=== PATIENT | female | born 1980 | race Caucasian/White ===

== ENCOUNTER 2016-07-15 23:03 | Emergency (ER) | payer BC ==
[~2016-07-15] VITALS: Ht 152.4 cm; Wt 60.0 kg
[2016-07-15 23:15] VITALS: Ht 152.4 cm; Wt 60.0 kg
[2016-07-16] MEDS ORDERED: ONDANSETRON (ODT) 4 MG TAB ODT STA (00:12)
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
--- NOTE | 2016-07-16 01:20 | RADRPT ---
PROCEDURE: XR Chest. CLINICAL INDICATION: Chest pain and trauma TECHNIQUE: AP Portable chest. COMPARISON: No pertinent prior examinations were submitted for comparison. FINDINGS: The cardiomediastinal silhouette is normal. The lungs are clear. The osseous structures are unrema rkable. IMPRESSION: No acute findings. RPTAT: HIKT .Vinh Jeffrey MD, MD Date Time Electronically viewed and signed by .Vinh Jeffrey MD, MD on 07/16/2016 01:20 .T/
--- NOTE | 2016-07-16 01:22 | RADRPT ---
PROCEDURE: Noncontrast CT Head. CLINICAL INDICATION: Trauma TECHNIQUE: Noncontrast CT of the head was obtained. The administered radiation dose was CTDI vol = 45 mGy, DLP = 720 mGy-cm. COMPARISON: No pertinent prior examinations were submitted for comparison. FINDINGS: The ventricles and sulci are within normal limits. There is no acute intracranial hemorrhage or ext ra-axial fluid collection. There is no mass effect. No midline shift is identified. There is no loss of moulton-white differentiation to suggest acute infarction. The orbits are within normal limits. The paranasal sinuses and mastoid air cells are without fluid. No destructive osseous lesion is identified. IMPRESSION: No acute findings. RPTAT: HIKT .Vinh Jeffrey MD, MD Date Time Electronically viewed and signed by .Vinh Jeffrey MD, on 07/16/2016 01:21 .T/
[2016-07-16] MEDS ORDERED: HYDR-906 PO (01:34)
[2016-07-16] MEDS ORDERED: ONDA4TAB14 PO (01:34)
[2016-07-16 02:23] VITALS: BP 128/70; PULSE 70; RESP 18; TEMP 98.3
== END 2016-07-16 01:35 | disposition home or self-care (01) ==
LOC: FTE 23:03
DX: S20.212A Contusion of left front wall of thorax, initial encounter (principal); S06.0X0A Concussion without loss of consciousness, initial encounter; V49.40XA Driver injured in collision with unspecified motor vehicles in traffic accident, initial encounter
CPT/HCPCS: 70450; 71010